=== PATIENT | female | born 1935 | race African-American/Black ===

== ENCOUNTER 2023-06-28 15:34 | Emergency (ER) | payer MEDICARE ==
[~2023-06-28] VITALS: Ht 165.1 cm; Wt 49.9 kg
[2023-06-28 15:56] VITALS: BP 132/70; O2SAT 94
[2023-06-28 20:47] VITALS: PULSE 90; RESP 16; TEMP 98
== END 2023-06-28 21:01 | disposition home or self-care (01) ==
LOC: ER 15:34
DX: S61.412A Laceration without foreign body of left hand, initial encounter (principal); I10 Essential (primary) hypertension; J44.1 Chronic obstructive pulmonary disease with (acute) exacerbation; W18.30XA Fall on same level, unspecified, initial encounter; Y93.89 Activity, other specified; Y92.89 Other specified places as the place of occurrence of the external cause; Y99.8 Other external cause status
CPT/HCPCS: 12004; 73100; 73120; 99284

== ENCOUNTER 2025-06-28 11:38 | Inpatient (IN) | payer MEDICARE ==
[~2025-06-28] VITALS: Ht 162.6 cm; Wt 51.3 kg
[2025-06-28 12:11] LABS: BASOPHILS % 1.0 % (0.0-2.0); EOSINOPHILS % 0.3 % (0.0-5.0); HEMATOCRIT. 42.0 % (36.0-48.0); HEMOGLOBIN. 13.9 g/dL (12.0-16.0); LYMPHOCYTES % 13.6 % (20.0-50.0); MEAN PLATELET VOLUME 9.2 fl (7.4-10.4); MONOCYTES % 10.9 % (2.0-8.0); NEUTROPHILS % 74.2 % (40.0-76.0); PLATELET 234 x1000/uL (130-400); RED BLOOD CELL COUNT 4.64 mill/uL (4.2-5.4); RED CELL DISTRIBUTION WIDTH 15.5 % (11.6-14.6)
[2025-06-28] MEDS: KETOROLAC 15MG/ML VIAL IV ONE (12:25)
[2025-06-28 12:35] LABS: CREATININE 1.2 mg/dL (0.6-1.0); UREA NITROGEN BLOOD 34 mg/dL (9-23)
[2025-06-28 12:37] LABS: ASPARTATE AMINOTRANSFERASE 31 IU/L (<34); BILIRUBIN DIRECT 0.1 mg/dL (<=3.0); BILIRUBIN TOTAL 0.5 mg/dL (0.1-1.0)
[2025-06-28 12:38] LABS: PROTEIN TOTAL 6.9 g/dL (6.0-8.3)
[2025-06-28 12:50] LABS: TROPONIN I HIGH SENSITIVITY 313 ng/L (3.0-34)
[2025-06-28] MEDS ORDERED: MAGNESIUM/ALUMINUM HYDROXIDE/SIMETHICONE 30ML UDC PO PRN (14:30)
[2025-06-28] MEDS ORDERED: ONDANSETRON HCL 4MG/2ML INJ IV PRN (14:30)
[2025-06-28] MEDS ORDERED: DIPHENHYDRAMINE 50MG/ML VIAL IV PRN (14:30)
[2025-06-28 14:49] LABS: TROPONIN I HIGH SENSITIVITY 279 ng/L (3.0-34)
[2025-06-28 16:11] VITALS: BP 148/84; PULSE 82; RESP 28; TEMP 36.6; O2SAT 91
[2025-06-28 17:26] VITALS: BP 148/84; PULSE 87; RESP 29; TEMP 36.6404
[2025-06-28] MEDS: DEXT 5%/0.45% NACL 1000ML 1,000 ML IV SCH (17:49)
[2025-06-28] MEDS: ENOXAPARIN 40MG/0.4ML SYR SUBCUT SCH (17:49)
[2025-06-28 20:00] VITALS: BP 119/81; PULSE 72; RESP 22; TEMP 36.9; O2SAT 97
[2025-06-28 23:38] LABS: CLARITY URINE CLEAR (CLEAR); COLOR URINE DARK YELLOW (YELLOW); GLUCOSE URINE NEGATIVE (NEGATIVE); KETONES URINE NEGATIVE (NEGATIVE); LEUKOCYTE ESTERASE URINE TRACE (NEGATIVE); NITRITE URINE NEGATIVE (NEGATIVE); OCCULT BLOOD URINE NEGATIVE (NEGATIVE); PH URINE 5.5 (4.5-8.0); PROTEIN URINE 2+ (NEGATIVE); SPECIFIC GRAVITY URINE >1.040 (1.005-1.030); UROBILINOGEN URINE 1.0 E.U./dL (0.2-1.0)
[2025-06-29] VITALS (7 sets, daily range): BP systolic 119–167; BP diastolic 55–122; PULSE 63–87; RESP 19–27; TEMP 36.5–36.8; O2SAT 97–98
[2025-06-29 00:07] LABS: TROPONIN I HIGH SENSITIVITY 180 ng/L (3.0-34)
[2025-06-29 04:34] LABS: BACTERIA URINE NONE SEEN; RBC URINE 0-2 /hpf (0-2); SQUAMOUS EPITHELIAL CELL URINE NONE SEEN /lpf (RARE/1+); WBC URINE 0-2 /hpf (0-2)
[2025-06-29] MEDS: SODIUM CHLORIDE 0.9% 3ML FLUSH IVF SCH (05:04)
[2025-06-29 06:53] LABS: CREATININE 1.0 mg/dL (0.6-1.0); UREA NITROGEN BLOOD 27 mg/dL (9-23)
[2025-06-29 06:55] LABS: PHOSPHORUS 2.8 mg/dL (2.5-4.9)
[2025-06-29 07:10] LABS: TROPONIN I HIGH SENSITIVITY 112 ng/L (3.0-34)
[2025-06-29] MEDS: IOHEXOL-300 100 ML BOTTLE ONE (12:13)
[2025-06-29 13:11] LABS: BASOPHILS % 0.6 % (0.0-2.0); EOSINOPHILS % 2.3 % (0.0-5.0); HEMATOCRIT. 38.4 % (36.0-48.0); HEMOGLOBIN. 12.5 g/dL (12.0-16.0); LYMPHOCYTES % 20.6 % (20.0-50.0); MEAN PLATELET VOLUME 9.3 fl (7.4-10.4); MONOCYTES % 14.9 % (2.0-8.0); NEUTROPHILS % 61.6 % (40.0-76.0); PLATELET 207 x1000/uL (130-400); RED BLOOD CELL COUNT 4.14 mill/uL (4.2-5.4); RED CELL DISTRIBUTION WIDTH 15.5 % (11.6-14.6)
[2025-06-29] MEDS: ASPIRIN 81MG TABLET PO SCH (16:59)
[2025-06-29] MEDS: DEXTROSE 5% WATER 1,000 ML IV SCH (17:14)
[2025-06-29] MEDS: IPRATROPIUM/ALBUTEROL 0.5-3(2.5)MG/3ML NEB HHN SCH (21:18)
[2025-06-29] MEDS ORDERED: GUAIFENESIN 200MG/10ML SUGAR FREE UDC PO PRN (21:45)
[2025-06-29] MEDS: ATORVASTATIN CALCIUM 20MG TABLET PO SCH (22:12)
[2025-06-29] MEDS: METHYLPREDNISOLONE SOD SUCC 40MG/ML (ACT-O-VIAL) IV SCH (22:12)
[2025-06-30] VITALS (9 sets, daily range): BP systolic 117–143; BP diastolic 66–80; PULSE 68–86; RESP 15–28; TEMP 36.4–37.2; O2SAT 97–100
[2025-06-30 06:21] LABS: CREATININE 0.6 mg/dL (0.6-1.0); UREA NITROGEN BLOOD 16 mg/dL (9-23)
[2025-06-30] MEDS: TRAMADOL 50MG TABLET PO PRN (13:50)
[2025-07-01] VITALS (10 sets, daily range): BP systolic 107–126; BP diastolic 63–92; PULSE 68–103; RESP 14–26; TEMP 36.3–36.8; O2SAT 92–100
[2025-07-01 07:39] LABS: CREATININE 0.9 mg/dL (0.6-1.0); UREA NITROGEN BLOOD 25 mg/dL (9-23)
[2025-07-01 08:46] LABS: HEMATOCRIT. 39.0 % (36.0-48.0); HEMOGLOBIN. 12.7 g/dL (12.0-16.0); MEAN PLATELET VOLUME 9.3 fl (7.4-10.4); PLATELET 207 x1000/uL (130-400); RED BLOOD CELL COUNT 4.25 mill/uL (4.2-5.4); RED CELL DISTRIBUTION WIDTH 15.6 % (11.6-14.6)
[2025-07-01 11:55] LABS: BG BASE EXCESS 2.6 mmol/L (-2.0-3.0); BG CARBOXYHEMOGLOBIN 1.4 % (0.5-1.5); BG DEOXYHEMOGLOBIN 17.2 % (0.0-5.0); BG FRACTION INSPIRED OXYGEN 21; BG HCO3 ACT 29.4 mmol/L (21.0-28.0); BG METHEMOGLOBIN 0.1 % (0.5-1.5); BG OXYGEN SATURATION 82.5 % (94.0-98.0); BG OXYHEMOGLOBIN 81.3 % (94.0-98.0); BG PCO2 54.2 mmHg (32.0-45.0); BG PH 7.352 (7.350-7.450); BG PO2 43.7 mmHg (83.0-108.0); BG SAMPLE SITE RIGHT BRACHIAL; BG TOTAL HEMOGLOBIN 13.9 g/dL (12.0-16.0); BG VENT MODE ROOM AIR
[2025-07-01 18:16] LABS: TROPONIN I HIGH SENSITIVITY 34 ng/L (3.0-34)
[2025-07-02] VITALS (12 sets, daily range): BP systolic 110–157; BP diastolic 66–84; PULSE 76–100; RESP 14–30; TEMP 36.6–37; O2SAT 92–98
[2025-07-02 08:20] LABS: BAND% 1.0 % (1.0-6.0); EOSINOPHILS % MANUAL 3.0 % (0.0-5.0); LYMPHOCYTES % MANUAL 34.0 % (20.0-60.0); METAMYELOCYTES % 1.0 % (0-0); MONOCYTES % MANUAL 10.0 % (2.0-8.0); NEUTROPHILS % MANUAL 51.0 % (45.0-75.0)
[2025-07-02 08:21] LABS: PLATELET ESTIMATE NORMAL
[2025-07-02] MEDS ORDERED: ALBU2.5V13 NEB (10:04)
[2025-07-02] MEDS ORDERED: ALBU18HF2 IH (10:06)
[2025-07-02] MEDS ORDERED: BUDE6.9H INH (10:07)
[2025-07-02] MEDS: METHYLPREDNISOLONE SOD SUCC 125MG/2ML (ACT-O-VIAL) IV NR (19:08)
[2025-07-03] VITALS (10 sets, daily range): BP systolic 122–155; BP diastolic 56–79; PULSE 79–91; RESP 20–30; TEMP 36.3–37; O2SAT 90–99
[2025-07-03] MEDS: METHYLPREDNISOLONE SOD SUCC 125MG/2ML (ACT-O-VIAL) IV SCH ×2 (12:04→21:11)
[2025-07-03] MEDS: ACETAMINOPHEN 325MG TABLET PO PRN (16:02)
[2025-07-03] MEDS: AMLODIPINE 2.5MG TABLET PO SCH (20:42)
[2025-07-04] VITALS (10 sets, daily range): BP systolic 142–169; BP diastolic 73–88; PULSE 81–101; RESP 18–34; TEMP 36.2–36.8; O2SAT 92–100
[2025-07-04 08:40] LABS: HEMATOCRIT. 38.4 % (36.0-48.0); HEMOGLOBIN. 12.6 g/dL (12.0-16.0); MEAN PLATELET VOLUME 9.5 fl (7.4-10.4); PLATELET 239 x1000/uL (130-400); RED BLOOD CELL COUNT 4.20 mill/uL (4.2-5.4); RED CELL DISTRIBUTION WIDTH 15.3 % (11.6-14.6)
[2025-07-04 08:51] LABS: CREATININE 0.7 mg/dL (0.6-1.0); UREA NITROGEN BLOOD 22 mg/dL (9-23)
[2025-07-04 08:53] LABS: PHOSPHORUS 2.4 mg/dL (2.5-4.9)
[2025-07-04] MEDS ORDERED: IPRATROPIUM/ALBUTEROL 0.5-3(2.5)MG/3ML NEB HHN PRN (10:15)
[2025-07-04] MEDS: FUROSEMIDE 40MG/4ML VIAL IVP NR (13:12)
[2025-07-04] MEDS: CLONIDINE 0.1MG TABLET PO PRN (13:13)
[2025-07-04 14:39] LABS: BG BASE EXCESS 3.4 mmol/L (-2.0-3.0); BG CARBOXYHEMOGLOBIN 1.4 % (0.5-1.5); BG DEOXYHEMOGLOBIN 12.9 % (0.0-5.0); BG FLOW(L/min) 3.00 L/min; BG FRACTION INSPIRED OXYGEN 32; BG HCO3 ACT 29.6 mmol/L (21.0-28.0); BG METHEMOGLOBIN 0.1 % (0.5-1.5); BG OXYGEN SATURATION 86.9 % (94.0-98.0); BG OXYHEMOGLOBIN 85.6 % (94.0-98.0); BG PCO2 50.9 mmHg (32.0-45.0); BG PH 7.382 (7.350-7.450); BG PO2 51.3 mmHg (83.0-108.0); BG SAMPLE SITE RIGHT RADIAL; BG TOTAL HEMOGLOBIN 14.4 g/dL (12.0-16.0); BG VENT MODE NASAL CANNULA
[2025-07-04] MEDS: IPRATROPIUM/ALBUTEROL 0.5-3(2.5)MG/3ML NEB HHN SCH (20:13)
[2025-07-05] VITALS (11 sets, daily range): BP systolic 118–154; BP diastolic 62–77; PULSE 67–103; RESP 20–41; TEMP 36.2–36.7; O2SAT 94–100
[2025-07-05 07:02] LABS: HEMATOCRIT. 36.9 % (36.0-48.0); HEMOGLOBIN. 12.3 g/dL (12.0-16.0); MEAN PLATELET VOLUME 9.8 fl (7.4-10.4); PLATELET 260 x1000/uL (130-400); RED BLOOD CELL COUNT 4.12 mill/uL (4.2-5.4); RED CELL DISTRIBUTION WIDTH 15.5 % (11.6-14.6)
[2025-07-05 07:22] LABS: CREATININE 0.8 mg/dL (0.6-1.0)
[2025-07-05 07:23] LABS: TROPONIN I HIGH SENSITIVITY 23 ng/L (3.0-34); UREA NITROGEN BLOOD 35 mg/dL (9-23)
[2025-07-05 16:27] LABS: LYMPHOCYTES % MANUAL 10.0 % (20.0-60.0); MONOCYTES % MANUAL 7.0 % (2.0-8.0); NEUTROPHILS % MANUAL 83.0 % (45.0-75.0); PLATELET ESTIMATE NORMAL
[2025-07-05 20:32] LABS: LYMPHOCYTES % MANUAL 6.0 % (20.0-60.0); MONOCYTES % MANUAL 4.0 % (2.0-8.0); NEUTROPHILS % MANUAL 90.0 % (45.0-75.0); PLATELET ESTIMATE NORMAL
[2025-07-05] MEDS ORDERED: NALOXONE HCL 0.4MG/ML VIAL IV PRN (22:45)
[2025-07-05] MEDS: TRAMADOL 50MG TABLET PO PRN (23:32)
[2025-07-06] VITALS (11 sets, daily range): BP systolic 124–149; BP diastolic 76–94; PULSE 75–93; RESP 14–26; TEMP 36.3–37.4; O2SAT 87–100
[2025-07-06 07:45] LABS: HEMATOCRIT. 38.5 % (36.0-48.0); HEMOGLOBIN. 12.8 g/dL (12.0-16.0); MEAN PLATELET VOLUME 9.9 fl (7.4-10.4); PLATELET 310 x1000/uL (130-400); RED BLOOD CELL COUNT 4.26 mill/uL (4.2-5.4); RED CELL DISTRIBUTION WIDTH 15.1 % (11.6-14.6)
[2025-07-06 07:49] LABS: CREATININE 0.8 mg/dL (0.6-1.0)
[2025-07-06 07:52] LABS: UREA NITROGEN BLOOD 37 mg/dL (9-23)
[2025-07-06] MEDS: AMLODIPINE 5MG TABLET PO SCH (09:04)
[2025-07-06] MEDS: POLYETHYLENE GLYCOL 3350 (17GM) 1 DOSE PACK PO SCH (09:04)
[2025-07-06 17:23] LABS: BAND% 1.0 % (1.0-6.0); LYMPHOCYTES % MANUAL 4.0 % (20.0-60.0); MONOCYTES % MANUAL 2.0 % (2.0-8.0); NEUTROPHILS % MANUAL 93.0 % (45.0-75.0); PLATELET ESTIMATE NORMAL
[2025-07-07] VITALS (11 sets, daily range): BP systolic 131–151; BP diastolic 61–82; PULSE 77–102; RESP 16–25; TEMP 36.4–37.1; O2SAT 96–100
[2025-07-07 10:37] LABS: HEMATOCRIT. 40.1 % (36.0-48.0); HEMOGLOBIN. 13.0 g/dL (12.0-16.0); MEAN PLATELET VOLUME 9.7 fl (7.4-10.4); PLATELET 303 x1000/uL (130-400); RED BLOOD CELL COUNT 4.38 mill/uL (4.2-5.4); RED CELL DISTRIBUTION WIDTH 15.4 % (11.6-14.6)
[2025-07-07 11:16] LABS: CREATININE 0.9 mg/dL (0.6-1.0)
[2025-07-07 11:18] LABS: UREA NITROGEN BLOOD 35 mg/dL (9-23)
[2025-07-07 18:55] LABS: LYMPHOCYTES % MANUAL 4.0 % (20.0-60.0); MONOCYTES % MANUAL 3.0 % (2.0-8.0); NEUTROPHILS % MANUAL 93.0 % (45.0-75.0); PLATELET ESTIMATE NORMAL
[2025-07-08] VITALS (11 sets, daily range): BP systolic 122–144; BP diastolic 59–90; PULSE 81–102; RESP 15–24; TEMP 36.7–36.9; O2SAT 95–98
[2025-07-08] MEDS: PREDNISONE 20MG TABLET PO SCH (08:38)
[2025-07-09] VITALS (12 sets, daily range): BP systolic 112–172; BP diastolic 57–103; PULSE 75–115; RESP 18–45; TEMP 35.8–36.9; O2SAT 91–100
[2025-07-09] MEDS: PREDNISONE 20MG TABLET PO SCH (10:27)
[2025-07-09 12:32] LABS: BG BASE EXCESS 4.8 mmol/L (-2.0-3.0); BG CARBOXYHEMOGLOBIN 1.9 % (0.5-1.5); BG DEOXYHEMOGLOBIN 8.4 % (0.0-5.0); BG FLOW(L/min) 2.50 L/min; BG HCO3 ACT 29.3 mmol/L (21.0-28.0); BG METHEMOGLOBIN 0.2 % (0.5-1.5); BG OXYGEN SATURATION 91.4 % (94.0-98.0); BG OXYHEMOGLOBIN 89.5 % (94.0-98.0); BG PCO2 42.9 mmHg (32.0-45.0); BG PH 7.452 (7.350-7.450); BG PO2 56.0 mmHg (83.0-108.0); BG SAMPLE SITE LEFT BRACHIAL; BG TOTAL HEMOGLOBIN 13.4 g/dL (12.0-16.0); BG VENT MODE NASAL CANNULA
[2025-07-09] MEDS: IPRATROPIUM/ALBUTEROL 0.5-3(2.5)MG/3ML NEB HHN SCH (12:44)
[2025-07-09] MEDS: METHYLPREDNISOLONE SOD SUCC 40MG/ML (ACT-O-VIAL) IV NR (13:06)
[2025-07-09] MEDS: METHYLPREDNISOLONE SOD SUCC 125MG/2ML (ACT-O-VIAL) IV SCH (21:09)
[2025-07-09] MEDS ORDERED: HYDRALAZINE 20MG/ML VIAL IV PRN (21:45)
[2025-07-09] MEDS ORDERED: HYDRALAZINE 10 MG in SODIUM CHLORIDE 0.9% 49.5 ML IV PRN (22:00)
[2025-07-10] VITALS (16 sets, daily range): BP systolic 109–152; BP diastolic 66–105; PULSE 78–97; RESP 18–41; TEMP 36.4–36.9; O2SAT 96–100
[2025-07-10 00:25] LABS: BG BASE EXCESS 2.9 mmol/L (-2.0-3.0); BG CARBOXYHEMOGLOBIN 1.1 % (0.5-1.5); BG DEOXYHEMOGLOBIN 0.5 % (0.0-5.0); BG FLOW(L/min) 6.00 L/min; BG FRACTION INSPIRED OXYGEN 40; BG HCO3 ACT 27.7 mmol/L (21.0-28.0); BG METHEMOGLOBIN 0.2 % (0.5-1.5); BG OXYGEN SATURATION 99.5 % (94.0-98.0); BG OXYHEMOGLOBIN 98.2 % (94.0-98.0); BG PCO2 43.3 mmHg (32.0-45.0); BG PH 7.424 (7.350-7.450); BG PO2 183.2 mmHg (83.0-108.0); BG SAMPLE SITE LEFT RADIAL; BG TOTAL HEMOGLOBIN 14.5 g/dL (12.0-16.0); BG VENT MODE MASK - SIMPLE
[2025-07-10] MEDS: PREDNISONE 20MG TABLET PO SCH (09:00)
[2025-07-10] MEDS: MEGESTROL ACETATE 400 MG/10 ML UDC PO SCH (21:17)
[2025-07-11] VITALS (9 sets, daily range): BP systolic 102–136; BP diastolic 45–75; PULSE 71–99; RESP 19–28; TEMP 36.2–36.7; O2SAT 96–100
[2025-07-11] MEDS ORDERED: HYDRALAZINE 20MG/ML VIAL IV PRN (07:15)
[2025-07-11] MEDS: DEXT 5%/0.45% NACL 1000ML 1,000 ML IV SCH (14:03)
[2025-07-11] MEDS: TRAMADOL 50MG TABLET PO PRN (14:59)
[2025-07-11] MEDS ORDERED: HYDRALAZINE 10 MG in SODIUM CHLORIDE 0.9% 49.5 ML IV PRN (17:30)
[2025-07-12] VITALS (11 sets, daily range): BP systolic 110–132; BP diastolic 47–64; PULSE 61–85; RESP 16–28; TEMP 35.9–38.1; O2SAT 96–100
[2025-07-12] MEDS: ACETAMINOPHEN 325MG TABLET PO PRN (22:48)
[2025-07-13] VITALS (13 sets, daily range): BP systolic 113–165; BP diastolic 53–72; PULSE 64–111; RESP 17–36; TEMP 36.2–36.9; O2SAT 97–100
[2025-07-14] VITALS (10 sets, daily range): BP systolic 104–130; BP diastolic 44–71; PULSE 60–109; RESP 16–40; TEMP 36.4–36.9; O2SAT 89–100
[2025-07-14] MEDS ORDERED: NALOXONE HCL 0.4MG/ML VIAL IV PRN (18:30)
[2025-07-14] MEDS: IPRATROPIUM/ALBUTEROL 0.5-3(2.5)MG/3ML NEB HHN PRN (21:49)
[2025-07-15] VITALS: BP 121/57; PULSE 72; RESP 24; TEMP 36.3; O2SAT 90
[2025-07-15 04:00] VITALS: BP 143/96; RESP 18; TEMP 36.3; O2SAT 97
[2025-07-15 07:20] LABS: HEMATOCRIT. 37.9 % (36.0-48.0); HEMOGLOBIN. 12.6 g/dL (12.0-16.0); MEAN PLATELET VOLUME 8.8 fl (7.4-10.4); PLATELET 295 x1000/uL (130-400); RED BLOOD CELL COUNT 4.18 mill/uL (4.2-5.4); RED CELL DISTRIBUTION WIDTH 15.5 % (11.6-14.6)
[2025-07-15 07:56] LABS: CREATININE 0.7 mg/dL (0.6-1.0); UREA NITROGEN BLOOD 16 mg/dL (9-23)
[2025-07-15 07:58] LABS: PHOSPHORUS 3.1 mg/dL (2.5-4.9)
[2025-07-15 08:00] VITALS: BP 125/62; PULSE 74; RESP 24; TEMP 36.6; O2SAT 99
[2025-07-15 12:00] VITALS: BP 129/56; PULSE 93; RESP 23; TEMP 36.3; O2SAT 97
[2025-07-15 16:00] VITALS: BP 114/69; RESP 25; TEMP 36.6; O2SAT 97
[2025-07-15 20:00] VITALS: BP 138/79; PULSE 88; RESP 24; TEMP 36.1; O2SAT 99
[2025-07-16] VITALS: BP 126/81; PULSE 88; RESP 20; TEMP 36.3; O2SAT 99
[2025-07-16 04:00] VITALS: BP 138/79; PULSE 90; RESP 20; TEMP 36.3; O2SAT 100
[2025-07-16 08:00] VITALS: BP 143/59; PULSE 69; RESP 27; TEMP 36.8; O2SAT 99
[2025-07-16 12:00] VITALS: BP 125/50; PULSE 71; RESP 29; TEMP 37.6; O2SAT 98
[2025-07-16 15:54] LABS: LYMPHOCYTES % MANUAL 11.0 % (20.0-60.0); MONOCYTES % MANUAL 11.0 % (2.0-8.0); NEUTROPHILS % MANUAL 78.0 % (45.0-75.0); PLATELET ESTIMATE NORMAL
[2025-07-16 16:00] VITALS: BP 128/54; PULSE 82; RESP 28; TEMP 37; O2SAT 100
[2025-07-16 20:00] VITALS: BP 139/54; PULSE 85; RESP 22; TEMP 37.1; O2SAT 97
[2025-07-17 04:00] VITALS: BP 125/59; PULSE 75; RESP 23; TEMP 36.3; O2SAT 98
[2025-07-17 08:00] VITALS: BP 137/69; PULSE 77; RESP 19; TEMP 36.5; O2SAT 100
[2025-07-17 16:00] VITALS: BP 136/67; PULSE 86; RESP 22; TEMP 36.2; O2SAT 98
[2025-07-17 20:00] VITALS: BP 137/66; PULSE 91; RESP 19; TEMP 37.1; O2SAT 96
[2025-07-17 20:05] VITALS: PULSE 88; RESP 18; O2SAT 95
[2025-07-17 23:42] VITALS: BP 124/55; PULSE 77; RESP 19; TEMP 38; O2SAT 97
[2025-07-18 04:00] VITALS: BP 114/48; PULSE 64; RESP 19; TEMP 36.9; O2SAT 100
[2025-07-18 08:00] VITALS: BP 119/45; PULSE 71; RESP 17; TEMP 36.3; O2SAT 98
[2025-07-18 12:00] VITALS: BP 126/46; PULSE 70; RESP 17; TEMP 36.6; O2SAT 98
[2025-07-18 16:00] VITALS: BP 126/53; PULSE 79; RESP 17; TEMP 36.3; O2SAT 99
[2025-07-18 20:00] VITALS: BP 112/56; PULSE 80; RESP 21; TEMP 36.2; O2SAT 98
[2025-07-19] VITALS: BP 129/56; PULSE 70; RESP 21; TEMP 36.7; O2SAT 97
[2025-07-19 04:00] VITALS: BP 108/57; PULSE 83; RESP 22; TEMP 36.3; O2SAT 98
[2025-07-19 08:00] VITALS: BP 126/72; PULSE 74; RESP 16; TEMP 36.3; O2SAT 100
[2025-07-19 12:00] VITALS: BP 127/74; PULSE 85; RESP 16; TEMP 36.4; O2SAT 98
[2025-07-19 16:00] VITALS: BP 130/67; PULSE 82; RESP 16; TEMP 36.2; O2SAT 100
[2025-07-19 20:00] VITALS: BP 136/67; PULSE 100; RESP 17; TEMP 37.1; O2SAT 94
[2025-07-20] VITALS (8 sets, daily range): BP systolic 103–159; BP diastolic 50–80; PULSE 51–105; RESP 15–28; TEMP 36.4–37.2; O2SAT 94–100
[2025-07-20] MEDS: IPRATROPIUM/ALBUTEROL 0.5-3(2.5)MG/3ML NEB HHN PRN (04:46)
[2025-07-20 06:38] LABS: HEMATOCRIT. 37.2 % (36.0-48.0); HEMOGLOBIN. 12.5 g/dL (12.0-16.0); MEAN PLATELET VOLUME 8.5 fl (7.4-10.4); PLATELET 250 x1000/uL (130-400); RED BLOOD CELL COUNT 4.11 mill/uL (4.2-5.4); RED CELL DISTRIBUTION WIDTH 15.5 % (11.6-14.6)
[2025-07-20 06:44] LABS: CREATININE 1.0 mg/dL (0.6-1.0)
[2025-07-20 06:45] LABS: LDL CHOLESTEROL 60 mg/dL (5-100); TRIGLYCERIDE 54 mg/dL (0-150); UREA NITROGEN BLOOD 28 mg/dL (9-23)
[2025-07-20 06:47] LABS: PHOSPHORUS 2.5 mg/dL (2.5-4.9)
[2025-07-20 15:12] LABS: LYMPHOCYTES % MANUAL 6.0 % (20.0-60.0); MONOCYTES % MANUAL 9.0 % (2.0-8.0); NEUTROPHILS % MANUAL 85.0 % (45.0-75.0); PLATELET ESTIMATE NORMAL
[2025-07-21] VITALS (10 sets, daily range): BP systolic 96–147; BP diastolic 59–81; PULSE 91–110; RESP 17–25; TEMP 36.2–36.7; O2SAT 83–100
[2025-07-21] MEDS: AMLODIPINE 5MG TABLET PO SCH (17:20)
[2025-07-21] MEDS: BUDESONIDE 0.5MG/2ML NEB HHN SCH (19:46)
[2025-07-21] MEDS: BLOOD SUGAR DIAGNOSTIC STRIP TEST SCH (21:00)
[2025-07-21] MEDS: INSULIN LISPRO 100 UNITS/ML SUBCUT SCH (21:00)
[2025-07-21] MEDS: DEXT 5%/0.45% NACL 500ML 500 ML IV ONE (22:00)
[2025-07-21] MEDS: METHYLPREDNISOLONE SOD SUCC 125MG/2ML (ACT-O-VIAL) IV NR (22:00)
[2025-07-22] VITALS (8 sets, daily range): BP systolic 125–149; BP diastolic 55–76; PULSE 71–117; RESP 18–22; TEMP 36.1–36.8; O2SAT 95–100
[2025-07-22] MEDS: METHYLPREDNISOLONE SOD SUCC 40MG/ML (ACT-O-VIAL) IV SCH (14:00)
[2025-07-22] MEDS: IPRATROPIUM/ALBUTEROL 0.5-3(2.5)MG/3ML NEB HHN SCH (20:08)
[2025-07-23] VITALS (8 sets, daily range): BP systolic 92–157; BP diastolic 43–86; PULSE 51–110; RESP 9–33; TEMP 36.3–37.5; O2SAT 96–100
[2025-07-23] MEDS ORDERED: MIDODRINE HCL 5MG TABLET PO PRN (06:15)
[2025-07-23] MEDS: METHYLPREDNISOLONE SOD SUCC 40MG/ML (ACT-O-VIAL) IV NR (06:30)
[2025-07-23] MEDS: SODIUM CHLORIDE 0.9% 1,000 ML IV ONE (07:33)
[2025-07-23 11:12] LABS: UREA NITROGEN BLOOD 71.0 mg/dL (9-23)
[2025-07-23] MEDS: DEXTROSE 50% WATER 50ML SYRINGE IV PRN (12:25)
[2025-07-23 12:42] LABS: CREATININE 2.4 mg/dL (0.6-1.0)
== END 2025-07-23 13:03 ==
LOC: ER 11:45 → EDBEDREQTM 14:07 → EDBEDREQSVC 14:07 → EDBEDREQ 14:07 → ENRESERV 15:02 → 3WST 15:38 → 7EST 07-09 01:13 → 5EST 07-09 22:48 → 7EST 07-11 17:14
PROVIDERS: ADMIT Internal Medicine; ATTEND Internal Medicine
DX: I21.4 Non-ST elevation (NSTEMI) myocardial infarction (principal); J96.01 Acute respiratory failure with hypoxia; G93.40 Encephalopathy, unspecified; S22.42XA Multiple fractures of ribs, left side, initial encounter for closed fracture; E87.0 Hyperosmolality and hypernatremia; J44.1 Chronic obstructive pulmonary disease with (acute) exacerbation; N39.0 Urinary tract infection, site not specified; L08.9 Local infection of the skin and subcutaneous tissue, unspecified; K76.82 Hepatic encephalopathy; I10 Essential (primary) hypertension; I71.40 Abdominal aortic aneurysm, without rupture, unspecified; F03.90 Unspecified dementia, unspecified severity, without behavioral disturbance, psychotic disturbance, mood disturbance, and anxiety; E86.0 Dehydration; E87.5 Hyperkalemia; R29.6 Repeated falls; W18.39XA Other fall on same level, initial encounter; Z87.891 Personal history of nicotine dependence; Z75.1 Person awaiting admission to adequate facility elsewhere; Z86.73 Personal history of transient ischemic attack (TIA), and cerebral infarction without residual deficits; Z79.82 Long term (current) use of aspirin; Z91.81 History of falling; Y93.89 Activity, other specified; Y92.89 Other specified places as the place of occurrence of the external cause; Y99.8 Other external cause status
CPT/HCPCS: 36415; 36600; 71045; 71111; 74177; 80048; 80061; 80076; 81003; 82375; 82805; 82962; 83036; 83735; 83880; 84100; 84443; 84484; 85025; 92610; 93005; 93308; 93970; 94070; 94640; 94664; 94760; 96374; 97110; 97162; 97164; 97166; 97530; 99285; A4606; A4615; J0360; J1200; J1650; J1815; J1885; J1938; J2919; J7070; J7512; J7626; Q9967